=== PATIENT | female | born 1965 | race Native Hawaiian/Other Pacific Islander ===

== ENCOUNTER 2017-10-18 09:47 | Outpatient (CLI) | payer OTHER ==
[2017-10-18 10:04] LABS: PLATELET COUNT 238 K/uL (152-353)
== END 2017-10-18 21:32 | disposition home or self-care (01) ==
LOC: LABW 09:47
PROVIDERS: Family Medicine
DX: E11.9 Type 2 diabetes mellitus without complications (principal); I10 Essential (primary) hypertension; Z79.899 Other long term (current) drug therapy; E78.2 Mixed hyperlipidemia; E55.9 Vitamin D deficiency, unspecified
CPT/HCPCS: 36415; 80053; 80061; 81000; 82043; 82306; 82570; 83036; 85027; 87077; 87086; 87088; 87186

== ENCOUNTER 2017-11-07 15:09 | Outpatient (CLI) | payer OTHER | END 2017-11-07 23:07 | disposition home or self-care (01) | LOC: MAMMO 15:09 | DX: Z12.31 Encounter for screening mammogram for malignant neoplasm of breast (principal) ==

== ENCOUNTER 2018-01-04 17:50 | Emergency (ER) | payer OTHER ==
[~2018-01-04] VITALS: Ht 165.1 cm; Wt 167.8 kg
[2018-01-04 19:35] LABS: PLATELET COUNT 455 K/uL (152-353)
[2018-01-04 20:02] LABS: POTASSIUM 4.3 mmol/L (3.6-5.2)
[2018-01-04 23:45] VITALS: BP 127/101; TEMP 97.5
== END 2018-01-04 23:55 | disposition short-term general hospital (02) ==
LOC: ED 17:50
DX: N17.9 Acute kidney failure, unspecified (principal)
CPT/HCPCS: 36415; 80053; 81000; 83605; 85027; 87077; 87086; 87088; 87186; 93005; 99284

== ENCOUNTER 2018-01-05 00:01 | Outpatient (CLI) | payer OTHER | END 2018-01-05 00:40 | disposition short-term general hospital (02) | LOC: AMB 00:01 | DX: N17.9 Acute kidney failure, unspecified (principal) | CPT/HCPCS: A0425; A0427 ==

== ENCOUNTER 2018-02-12 17:43 | Inpatient (IN) | payer OTHER ==
[~2018-02-12] VITALS: Ht 167.6 cm; Wt 127.2 kg
[2018-02-12 18:42] VITALS: BP 159/69; TEMP 98.1; Ht 167.6 cm; Wt 127.2 kg
[2018-02-12 20:00] VITALS: BP 156/72; TEMP 97.8
[2018-02-13 06:36] LABS: PLATELET COUNT 239 K/uL (152-353)
[2018-02-13 06:48] LABS: POTASSIUM 3.9 mmol/L (3.6-5.2)
[2018-02-13 08:26] VITALS: BP 109/52; TEMP 98.1
[2018-02-13 19:57] VITALS: BP 118/57; TEMP 100
[2018-02-14 06:01] LABS: PLATELET COUNT 203 K/uL (152-353)
[2018-02-14 08:00] VITALS: BP 135/59; TEMP 98.4
[2018-02-14 20:00] VITALS: BP 155/80; TEMP 97.8
[2018-02-15 08:00] VITALS: BP 105/43; TEMP 98.8
[2018-02-15 20:07] VITALS: BP 102/64; BP 109/67; TEMP 97.7; TEMP 98.6
[2018-02-16 08:00] VITALS: BP 92/57; TEMP 98
[2018-02-16 19:55] VITALS: BP 122/56; TEMP 98.2
[2018-02-17 08:07] VITALS: BP 107/50; TEMP 97.9
[2018-02-17 20:00] VITALS: BP 122/49; TEMP 98.6
[2018-02-18 08:02] VITALS: BP 110/72; TEMP 98.1
[2018-02-18 20:00] VITALS: BP 121/56; TEMP 99.2
[2018-02-19 08:00] VITALS: BP 124/64; TEMP 97.9
[2018-02-19 20:00] VITALS: BP 995/70; TEMP 98.7
[2018-02-20 08:05] VITALS: BP 109/64; TEMP 98.2
[2018-02-20 20:02] VITALS: BP 130/53; TEMP 98.2
[2018-02-21 08:02] VITALS: BP 96/55; TEMP 98.3
[2018-02-21 10:00] VITALS: BP 111/56
[2018-02-21 20:00] VITALS: BP 119/52; TEMP 98.3
[2018-02-22 08:06] VITALS: BP 119/51; TEMP 98.2
[2018-02-22 19:47] VITALS: BP 157/75; TEMP 98.7
[2018-02-23 08:00] VITALS: BP 131/50; TEMP 99.1
[2018-02-23 20:05] VITALS: BP 96/49; TEMP 98.3
[2018-02-24 08:00] VITALS: BP 134/76; TEMP 98.2
[2018-02-24 20:14] VITALS: BP 104/64; TEMP 99.5
[2018-02-25 08:00] VITALS: BP 91/43; TEMP 98
[2018-02-25 20:03] VITALS: BP 128/58; TEMP 97.9
[2018-02-26 08:19] VITALS: BP 118/66; TEMP 98.1
[2018-02-26 20:00] VITALS: BP 165/83; TEMP 99.9
[2018-02-27 08:00] VITALS: BP 149/84; TEMP 98.6
== END 2018-02-27 13:50 | disposition home or self-care (01) | DRG 556 ==
LOC: MED/SURG 17:43
PROVIDERS: ADMIT Internal Medicine
PROC: 30233N1 Transfusion of Nonautologous Red Blood Cells into Peripheral Vein, Percutaneous Approach (ICD-10-PCS; 2018-02-13)
PROC: 30233N1 Transfusion of Nonautologous Red Blood Cells into Peripheral Vein, Percutaneous Approach (ICD-10-PCS; principal; 2018-02-15)
DX: M62.81 Muscle weakness (generalized) (principal); N18.9 Chronic kidney disease, unspecified; I10 Essential (primary) hypertension; D64.9 Anemia, unspecified; E11.9 Type 2 diabetes mellitus without complications; E66.01 Morbid (severe) obesity due to excess calories; R26.81 Unsteadiness on feet; E53.8 Deficiency of other specified B group vitamins; E78.49 Other hyperlipidemia
CPT/HCPCS: 36415; 80053; 80307; 82607; 82728; 83540; 85014; 85018; 85027; 86850; 86900; 86901; 86922; 94664; 94760; G0283-GP; J1940; P9016

== ENCOUNTER 2018-03-13 12:50 | Outpatient (CLI) | payer OTHER ==
[2018-03-13 13:21] LABS: PLATELET COUNT 302 K/uL (152-353)
[2018-03-13 13:47] LABS: POTASSIUM 4.3 mmol/L (3.6-5.2)
== END 2018-03-13 20:31 | disposition home or self-care (01) ==
LOC: LABW 12:50
PROVIDERS: Family Medicine
DX: N18.3 Chronic kidney disease, stage 3 (moderate) (principal); E11.22 Type 2 diabetes mellitus with diabetic chronic kidney disease; I10 Essential (primary) hypertension; Z79.899 Other long term (current) drug therapy
CPT/HCPCS: 36415; 80048; 80061; 80076; 83036; 84100; 85027

== ENCOUNTER 2018-05-09 11:04 | Outpatient (CLI) | payer OTHER ==
[2018-05-09 12:03] LABS: POTASSIUM 4.2 mmol/L (3.6-5.2)
== END 2018-05-09 20:04 | disposition home or self-care (01) ==
LOC: LABW 11:04
PROVIDERS: Internal Medicine
DX: N18.4 Chronic kidney disease, stage 4 (severe) (principal)
CPT/HCPCS: 36415; 80053